=== PATIENT | male | born 1985 | race Caucasian/White ===

== ENCOUNTER 2017-10-30 11:56 | Emergency (ER) | payer OTHER, MEDICAID, SELFPAY ==
[2017-10-30 13:24] VITALS: BP 108/66; PULSE 66; RESP 14; TEMP 36.8; O2SAT 99; BMI 19.1
--- NOTE | 2017-10-30 14:17 | PC.NURSE ---
patient denies symptoms. he reports a recent std exposure 4 months ago. requesting further testing.
[2017-10-30 15:28] LABS: Bacteria Urine None Seen; RBC Urine None Seen (0-5/HPF)
[2017-10-30 15:31] LABS: Appearance Urine UA CLEAR; Bilirubin Urine UA NEGATIVE (NEGATIVE); Color Urine UA YELLOW; Glucose Urine UA NEGATIVE (Normal); Ketones Urine UA NEGATIVE (NEGATIVE); Leukocyte Esterase Urine UA NEGATIVE (NEGATIVE); Nitrite Urine UA Negative (Negative); Occult Blood Urine UA NEGATIVE (Negative); Protein Urine UA NEGATIVE (Negative); Specific Gravity Urine UA <=1.005 (1.000-1.035); Urobilinogen Urine UA 0.2 E.U./dL (0.2); pH Urine UA 6.5 (4.5-8.0)
[2017-10-30 15:48] LABS: Culture Indicated Urine Cult Not Indicated; Squamous Epithelial Cell Urine 0-1 /HPF; WBC Urine 0-1/HPF (0-5/HPF)
[2017-10-30 17:00] LABS: Urine Chlamydia NOT DETECTED; Urine N gonorrhoeae NOT DETECTED
--- NOTE | 2017-10-30 21:26 | ED.MALEGU ---
HPI - Male Genitourinary <ENRIQUE Vasquez - Last Filed: 10/30/17 21:29> General Chief complaint: Urogenital-Male Stated complaint: NEEDS LAB WORK DONE, WALK IN SENT OVER Time Seen by Provider: 10/30/17 14:21 Source: patient Mode of arrival: ambulatory Limitations: no limitations History of Present Illness HPI Narrative: Patient presents with chief complaint of exposure to genital herpes. He denies any sores, rashes in the general area. He denies any fevers nausea vomiting diarrhea. He does eyes any abdominal pain he denies any dysuria urgency or frequency. He does not know of any other STD exposures. Related Data Home Medications Medication Instructions Recorded Confirmed No Known Home Medications 10/30/17 10/30/17 Allergies Allergy/AdvReac Type Severity Reaction Status Date / Time No Known Drug Allergies Allergy Verified 10/30/17 13:24 Review of Systems <ENRIQUE Vasquez - Last Filed: 10/30/17 21:29> Review of Systems GENERAL: Denies chills, fatigue, malaise, fever, sweats. HEENT: Denies sinus pain, ear pain, sore throat, difficulty swallowing, dizziness. RESPIRATORY: Denies dyspnea, cough, wheezing, hemoptysis, sputum. CARDIOVASCULAR: Denies chest pain, palpitations, orthopnea, edema, GASTROINTESTINAL: Denies nausea, vomiting, abdominal pain, diarrhea, constipation, melena. : see HPI MUSCULOSKELETAL: denies weakness, joint pain, or bony pain SKIN: See HPI NEUROLOGIC: Denies weakness, headache, numbness, change in speech, confusion, seizures, incoordination. PSYCHIATRIC: No concerning psychosocial issues. 12 point review of systems is negative except for those stated above Exam <ENRIQUE Vasquez - Last Filed: 10/30/17 21:29> Narrative Exam Narrative: GENERAL: This is a well-nourished, well-developed patient, in no acute distress sitting on stretcher HEAD: Atraumatic. Normocephalic. No temporal or scalp tenderness. EYES: Pupils equal round and reactive. Extraocular motions intact. No scleral icterus. No injection or drainage. ENT: Nose without bleeding, purulent drainage or septal hematoma. Throat without erythema, tonsillar hypertrophy or exudate. Uvula midline. Airway patent. NECK: Trachea midline. No JVD or lymphadenopathy. Supple, nontender, no meningeal signs. CARDIOVASCULAR: Regular rate and rhythm without murmurs, gallops, or rubs. RESPIRATORY: Clear to auscultation. Breath sounds equal bilaterally. No wheezes, rales, or rhonchi. GASTROINTESTINAL: Abdomen soft, non-tender, nondistended. No hepato-splenomegaly, or palpable masses. No guarding. EXTREMITIES: No clubbing, cyanosis, or edema. No joint tenderness, effusion, or edema noted. BACK: Nontender without deformity or crepitance. No flank tenderness. NEURO: AOx3. SKIN: No rash or erythema. exam was declined by patient Initial Vital Signs Initial Vital Signs: Vital Signs Temperature 98.3 F 10/30/17 13:24 Pulse Rate 66 10/30/17 13:24 Respiratory Rate 14 10/30/17 13:24 Blood Pressure 108/66 10/30/17 13:24 Pulse Oximetry 99 10/30/17 13:24 <Altagracia Lai DO - Last Filed: 10/31/17 09:57> Initial Vital Signs Initial Vital Signs: Vital Signs Temperature 98.3 F 10/30/17 13:24 Pulse Rate 66 10/30/17 13:24 Respiratory Rate 14 10/30/17 13:24 Blood Pressure 108/66 10/30/17 13:24 Pulse Oximetry 99 10/30/17 13:24 Course <ENRIQUE Vasquez - Last Filed: 10/30/17 21:29> Orders Ordered: ED Orders 10/30/17 15:01 Urinalysis and Microscopic Stat Urine Chlamydia Gonorrhea PCR Stat <DO Andressa Landaverde Last Filed: 10/31/17 09:57> Orders Ordered: ED Orders 10/30/17 15:01 Urinalysis and Microscopic Stat Urine Chlamydia Gonorrhea PCR Stat MDM - Male Genitourinary <ENRIQUE Vasquez - Last Filed: 10/30/17 21:29> Differential Diagnosis Likely urinary tract infection, urethritis and genital herpes simplex Lab Data Lab Results 10/30/17 10/30/17 Range/Units 15:01 15:01 Urine Color Yellow Urine Appearance Clear Urine pH 6.5 (4.5-8.0) Ur Specific [place] <=1.005 (1.000-1.035) Urine Protein Negative (Negative) Urine Glucose (UA) Negative (Normal) g/dL Urine Ketones Negative (NEGATIVE) Urine Occult Blood Negative (Negative) Urine Nitrate Negative (Negative) Urine Bilirubin Negative (NEGATIVE) Urine Urobilinogen 0.2 (0.2) E.U./dL Ur Leukocyte Esterase Negative (NEGATIVE) Urine RBC None seen (0-5/HPF) Urine WBC 0-1/hpf (0-5/HPF) Ur Squamous Epith Cells 0-1 /hpf Urine Bacteria None seen (None) Ur Culture Indicated? Cult not indicated Micro UA Comment Not Reportable Ur Chlamydia DNA (PCR) Not detected N gonorrhoeae DNA (PCR) Not detected MDM Narrative Medical decision making narrative: I discussed at length that ideal diagnosis of HSV is made with a viral swab and if he did not have any sores, it would be difficult to do. However he declined a exam in the emergency department. I did offer GC chlamydia testing, which she accepted. However he left against medical advice prior to results returning. His results were negative. <Altagracia Lai, DO - Last Filed: 10/31/17 09:57> Lab Data Lab Results 10/30/17 10/30/17 Range/Units 15:01 15:01 Urine Color Yellow Urine Appearance Clear Urine pH 6.5 (4.5-8.0) Ur Specific [place] <=1.005 (1.000-1.035) Urine Protein Negative (Negative) Urine Glucose (UA) Negative (Normal) g/dL Urine Ketones Negative (NEGATIVE) Urine Occult Blood Negative (Negative) Urine Nitrate Negative (Negative) Urine Bilirubin Negative (NEGATIVE) Urine Urobilinogen 0.2 (0.2) E.U./dL Ur Leukocyte Esterase Negative (NEGATIVE) Urine RBC None seen (0-5/HPF) Urine WBC 0-1/hpf (0-5/HPF) Ur Squamous Epith Cells 0-1 /hpf Urine Bacteria None seen (None) Ur Culture Indicated? Cult not indicated Micro UA Comment Not Reportable Ur Chlamydia DNA (PCR) Not detected N gonorrhoeae DNA (PCR) Not detected Discharge Plan Departure Patient Disposition: Left Against Medical Advice Clinical Impression: Concern about sexually transmitted disease in male without diagnosis Discharge Date/Time: 10/30/17 16:16 Interventions: ED Discharge Assessment Last Done: 10/30/17 16:16 Prescriptions: No Action No Known Home Medications RF: 0 Stand Alone Forms: Against Medical Advice <Altagracia Lai DO - Last Filed: 10/31/17 09:57> Cosign ED Attending Rainature Attestation: I was immediately available in the department for consultation. Documentation has been reviewed. I agree with assessment and plan.
== END 2017-10-30 16:16 | disposition left against medical advice (07) ==
PROVIDERS: Emergency Provider Nurse Practitioner Family
DX: Z71.1 Person with feared health complaint in whom no diagnosis is made (principal); Z20.2 Contact with and (suspected) exposure to infections with a predominantly sexual mode of transmission
CPT/HCPCS: 81001; 87491; 87591; 99283

== ENCOUNTER 2023-09-07 22:36 | Emergency (ER) | payer OTHER, MEDICAID, SELFPAY ==
[2023-09-07 22:39] VITALS: BP 135/88; PULSE 62; RESP 16; TEMP 36.6; O2SAT 100; BMI 21.7
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
[2023-09-07 23:21] VITALS: BP 132/80; PULSE 74; RESP 14; TEMP 36.3; O2SAT 98
== END 2023-09-07 23:25 | disposition home or self-care (01) ==
PROVIDERS: Emergency Provider Emergency Medicine
DX: Z02.89 Encounter for other administrative examinations (principal); S01.112A Laceration without foreign body of left eyelid and periocular area, initial encounter; Y04.2XXA Assault by strike against or bumped into by another person, initial encounter
CPT/HCPCS: 12011; 99281; 99283